=== PATIENT | female | born 1995 | race Caucasian/White ===

== ENCOUNTER → 2020-11-26 | Outpatient (CLI) | payer OTHER, BC ==
[2020-11-27 13:26] LABS: C DIFFICILE DNA NEGATIVE (Negative)
== END | disposition home or self-care (01) ==
LOC: LAB SHORT 07:30 → LAB 16:30 → LAB SHORT 16:30 → PLD 16:30
PROVIDERS: Family Medicine
DX: Z11.59 Encounter for screening for other viral diseases (principal); R19.7 Diarrhea, unspecified
CPT/HCPCS: 87015; 87045; 87046; 87177; 87205; 87209; 87329; 87493; 87899

== ENCOUNTER 2021-05-30 09:12 | Emergency (ER) | payer OTHER, BC ==
[~2021-05-30] VITALS: Ht 165.1 cm; Wt 106.6 kg
[2021-05-30 11:03] LABS: BASOPHILS ABSOLUTE AUTO 0.07 K/mm3 (0.00-0.23); BASOPHILS PERCENT AUTO 1 % (0-2); EOSINOPHILS ABSOLUTE AUTO 0.25 K/mm3 (0.00-0.68); EOSINOPHILS PERCENT AUTO 2 % (0-6); Hematocrit 45.1 % (33.0-51.0); Hemoglobin 14.9 g/dL (11.5-16.0); IMMATURE GRAN ABSOLUTE AUTO 0.05 K/mm3 (0.00-0.10); IMMATURE GRAN PERCENT AUTO 1 % (0-1); LYMPHOCYTES ABSOLUTE AUTO 3.19 K/mm3 (0.84-5.20); LYMPHOCYTES PERCENT AUTO 29 % (21-46); MONOCYTES ABSOLUTE AUTO 0.56 K/mm3 (0.16-1.47); MONOCYTES PERCENT AUTO 5 % (4-13); Mean Corpuscular HGB 28.2 pg (26.0-34.0); Mean Corpuscular Volume 85 fL (80-100); Mean Platelet Volume 10.6 fL (9.1-12.4); NEUTROPHILS ABSOLUTE AUTO 6.85 K/mm3 (1.96-9.15); NEUTROPHILS PERCENT AUTO 62 % (41-73); Platelet Count 237 K/mm3 (150-400); RDW Coefficient Variation 12.2 % (11.7-14.2); RDW Standard Deviation 37.8 fL (35.1-46.3); Red Blood Cell Count 5.28 M/mm3 (3.80-5.20); White Blood Cell Count 10.97 K/mm3 (4.00-11.30)
[2021-05-30 11:39] LABS: Source, Urine Clean Catch
[2021-05-30 12:00] LABS: Appearance, Urine Hazy (Clear); Bilirubin, Urine Neg (Neg); Blood, Urine 5+ (Neg); Color, Urine Red (P-Yellow); Glucose Qualitative, Urine Neg (Neg); Ketones, Urine Neg (Neg); Leukocyte Esterase, Urine 1+ (Neg); Nitrite, Urine Neg (Neg); Protein, Urine 3+ (Neg); Specific Gravity, Urine 1.015 (1.003-1.022); Urobilinogen, Urine NORM (Normal)
[2021-05-30 12:08] LABS: Bacteria Few /hpf; Red Blood Cells, Urine TNTC /hpf (0-2); Squamous Epithelial Cells Few /hpf (Few)
== END 2021-05-30 13:01 | disposition home or self-care (01) ==
LOC: ER 09:12
PROVIDERS: Physician Assistant
DX: O03.9 Complete or unspecified spontaneous abortion without complication (principal); Z88.0 Allergy status to penicillin
CPT/HCPCS: 36415; 76801; 76817; 81001; 84702; 85025; 86900; 86901; 87086; 99284-25

== ENCOUNTER → 2023-05-05 | Outpatient (CLI) | payer SELFPAY ==
[2023-05-05 14:14] LABS: Source, Urine Clean Catch
[2023-05-05 16:20] LABS: Amorphous Light (0-Heavy); Bacteria Many /hpf; Mucus Mod (0-Heavy); Red Blood Cells, Urine 0-2 /hpf (0-2); Squamous Epithelial Cells Few /hpf (Few); White Blood Cells, Urine 0-2 /hpf (0-5)
== END ==
LOC: LAB SHORT 14:10 → LAB 14:10
PROVIDERS: Advanced Practice Midwife
DX: O09.91 Supervision of high risk pregnancy, unspecified, first trimester (principal); Z3A.00 Weeks of gestation of pregnancy not specified
CPT/HCPCS: 81015; 87086

== ENCOUNTER → 2023-05-11 | Outpatient (CLI) | payer BC ==
[2023-05-11 10:03] LABS: BASOPHILS ABSOLUTE AUTO 0.04 K/mm3 (0.00-0.23); BASOPHILS PERCENT AUTO 0 % (0-2); EOSINOPHILS ABSOLUTE AUTO 0.25 K/mm3 (0.00-0.68); EOSINOPHILS PERCENT AUTO 2 % (0-6); Hematocrit 42.6 % (33.0-51.0); Hemoglobin 14.2 g/dL (11.5-16.0); IMMATURE GRAN ABSOLUTE AUTO 0.07 K/mm3 (0.00-0.10); IMMATURE GRAN PERCENT AUTO 1 % (0-1); LYMPHOCYTES ABSOLUTE AUTO 2.76 K/mm3 (0.84-5.20); LYMPHOCYTES PERCENT AUTO 26 % (21-46); MONOCYTES ABSOLUTE AUTO 0.47 K/mm3 (0.16-1.47); MONOCYTES PERCENT AUTO 4 % (4-13); Mean Corpuscular HGB 28.2 pg (26.0-34.0); Mean Corpuscular HGB Conc 33.3 g/dL (31.5-36.5); Mean Corpuscular Volume 85 fL (80-100); Mean Platelet Volume 10.7 fL (9.1-12.4); NEUTROPHILS ABSOLUTE AUTO 7.12 K/mm3 (1.96-9.15); NEUTROPHILS PERCENT AUTO 66 % (41-73); Platelet Count 208 K/mm3 (150-400); RDW Coefficient Variation 12.4 % (11.7-14.2); RDW Standard Deviation 37.8 fL (35.1-46.3); Red Blood Cell Count 5.04 M/mm3 (3.80-5.20); White Blood Cell Count 10.71 K/mm3 (4.00-11.30)
[2023-05-11 10:43] LABS: Albumin, Blood 3.5 g/dL (3.4-5.0); Albumin/Globulin Ratio 0.9 (0.8-1.8); Bilirubin, Total 0.3 mg/dL (0.1-1.0); Bun/Creatinine Ratio 17.8 (12.0-20.0); Calcium, Blood 8.6 mg/dL (8.5-10.1); Creatinine, Blood 0.56 mg/dL (0.40-1.00); Globulin, Blood 4.1 g/dL (2.2-4.0); Potassium, Blood 3.8 mmol/L (3.5-5.5); Thyroid Stimulating Hormone 1.22 uIU/mL (0.360-4.800); Total Protein, Blood 7.6 g/dL (6.4-8.2)
[2023-05-12 07:11] LABS: HIV AB/P24 AG SCREEN Non Reactive (Non Reactive)
[2023-05-12 08:11] LABS: HBSAG SCREEN Negative (Negative); HCV ANTIBODY Non Reactive (Non Reactive)
== END ==
LOC: LAB 07:53 → LAB SHORT 07:53
PROVIDERS: Advanced Practice Midwife
DX: O09.891 Supervision of other high risk pregnancies, first trimester (principal)
CPT/HCPCS: 36415; 80053; 84443; 85025; 86592; 86762; 86803; 86850; 86900; 86901; 87340; 87389

== ENCOUNTER → 2023-11-10 | Outpatient (CLI) | payer OTHER | END | disposition home or self-care (01) | LOC: LAB 18:08 → LAB SHORT 18:08 | DX: O09.891 Supervision of other high risk pregnancies, first trimester (principal) | CPT/HCPCS: 87081; 87150; 87184 ==

== ENCOUNTER 2023-12-12 19:05 | Inpatient (IN) | payer OTHER ==
[~2023-12-12] VITALS: Ht 167.6 cm; Wt 120.0 kg
[~2023-12-12 19:05] MED LIST: Misoprostol 200 MCG Tab PO ONE
[2023-12-12] MEDS ORDERED: Bupivacaine HCl 2.5 MG/ML 10ML P/F Injection XX SCH (19:20)
[2023-12-12] MEDS ORDERED: Lidocaine HCl 1% 30 ML SDV XX SCH (19:20)
[2023-12-12] MEDS ORDERED: Methylergonovine Maleate 0.2MG / ML 1ML Amp IM SCH (19:20)
[2023-12-12] MEDS ORDERED: Lactated Ringer's 1,000 ML IV PRN (19:20)
[2023-12-12] MEDS ORDERED: Oxytocin 10 Unit / ML Vial IM SCH (19:20)
[2023-12-12] MEDS ORDERED: FentaNYL 2mcg/ml-Bup 0.1% Epd 250 ML EPI PRN (19:20)
[2023-12-12] MEDS ORDERED: Misoprostol 200 MCG Tab PR SCH (19:20)
[2023-12-12] MEDS ORDERED: ePHEDrine Sulfate 50 MG/ML 1ML Injection XX PRN (19:20)
[2023-12-12] MEDS ORDERED: Lactated Ringer's 1,000 ML IV SCH ×2 (19:20)
[2023-12-12] MEDS ORDERED: Castor Oil 59.146 ML BTL TOP SCH (19:20)
[2023-12-12] MEDS ORDERED: Misoprostol 25 MCG Tab VAG PRN (19:20)
[2023-12-12] MEDS ORDERED: LR Oxytocin 20 Units 1,000 ML IV SCH ×3 (19:20)
[2023-12-12] MEDS ORDERED: Bupivacaine 0.5% HCl 5 MG/ML 30MLVIAL XX SCH (19:20)
[2023-12-12] MEDS ORDERED: Clindamycin 900mg in D5W 50ML 50 ML IV SCH (19:30)
[2023-12-12 19:58] LABS: BASOPHILS ABSOLUTE AUTO 0.03 K/mm3 (0.00-0.23); BASOPHILS PERCENT AUTO 0 % (0-2); EOSINOPHILS ABSOLUTE AUTO 0.18 K/mm3 (0.00-0.68); EOSINOPHILS PERCENT AUTO 2 % (0-6); Hemoglobin 12.9 g/dL (11.5-16.0); IMMATURE GRAN ABSOLUTE AUTO 0.11 K/mm3 (0.00-0.10); IMMATURE GRAN PERCENT AUTO 1 % (0-1); LYMPHOCYTES ABSOLUTE AUTO 3.15 K/mm3 (0.84-5.20); LYMPHOCYTES PERCENT AUTO 29 % (21-46); MONOCYTES PERCENT AUTO 7 % (4-13); Mean Corpuscular HGB 27.8 pg (26.0-34.0); Mean Corpuscular HGB Conc 33.9 g/dL (31.5-36.5); Mean Corpuscular Volume 82 fL (80-100); Mean Platelet Volume 11.5 fL (9.1-12.4); NEUTROPHILS ABSOLUTE AUTO 6.61 K/mm3 (1.96-9.15); NEUTROPHILS PERCENT AUTO 61 % (41-73); Platelet Count 181 K/mm3 (150-400); RDW Coefficient Variation 13.3 % (11.7-14.2); RDW Standard Deviation 38.8 fL (35.1-46.3); Red Blood Cell Count 4.64 M/mm3 (3.80-5.20); White Blood Cell Count 10.78 K/mm3 (4.00-11.30)
[2023-12-12 20:06] VITALS: BP 129/70
[2023-12-12] MEDS ORDERED: PRENATAL TABLE1 EAC2 PO (20:58)
[2023-12-12] MEDS ORDERED: ASPIR 8181 M1 PO (20:58)
[2023-12-12 21:58] VITALS: BP 143/78
[2023-12-12 22:13] VITALS: BP 127/80
[2023-12-12 22:28] VITALS: BP 137/72
[2023-12-12 22:44] VITALS: BP 136/77
[2023-12-12 22:58] VITALS: BP 149/79
[2023-12-13] VITALS (36 sets, daily range): BP systolic 122–186; BP diastolic 51–93
[2023-12-13] MEDS ORDERED: FentaNYL Citrate 50 MCG/ML 2 ML Injection ONE (09:19)
[2023-12-13] MEDS ORDERED: Carboprost Tromethamine 250 MCG/ML 1ML Amp ONE (14:25)
[2023-12-13] MEDS ORDERED: FLU VACC QS2023-24(6MOS UP)/PF 60 MCG/0.5 ML SYRINGE IM SCH (15:20)
[2023-12-13] MEDS ORDERED: Acetaminophen 325 MG TABLET PO PRN (15:20)
[2023-12-13] MEDS ORDERED: Misoprostol 200 MCG Tab PR PRN (15:20)
[2023-12-13] MEDS ORDERED: Docusate Sodium 100 MG Cap PO PRN (15:20)
[2023-12-13] MEDS ORDERED: Carboprost Tromethamine 250 MCG/ML 1ML Amp IM PRN (15:20)
[2023-12-13] MEDS ORDERED: Benzocaine Topical Anesthetic Spray 60GM TOP PRN (15:20)
[2023-12-13] MEDS ORDERED: LR Oxytocin 20 Units 1,000 ML IV SCH (15:25)
[2023-12-13] MEDS ORDERED: Lactated Ringer's 1,000 ML IV SCH (15:25)
[2023-12-13] MEDS ORDERED: Witch Hazel/Glycerin PADS TOP PRN (15:25)
[2023-12-13] MEDS ORDERED: Ibuprofen 400 MG Tab PO PRN (15:25)
[2023-12-13] MEDS ORDERED: Ketorolac Tromethamine 30mg Vial IV ONE (16:00)
[2023-12-13] MEDS ORDERED: Ketorolac Tromethamine 30mg Vial IV PRN (16:00)
[2023-12-14 05:02] VITALS: BP 134/94
[2023-12-14 05:04] VITALS: BP 133/66
[2023-12-14 08:14] VITALS: BP 136/73
[2023-12-14] MEDS ORDERED: Prenatal Vit/FE Fumarate/FA 1 Tab PO SCH (09:00)
[2023-12-14 11:15] VITALS: BP 137/65
[2023-12-14 14:51] VITALS: BP 136/72
== END 2023-12-14 16:10 | disposition home or self-care (01) | DRG 807 ==
LOC: OBS 19:05 → BC 19:15
PROVIDERS: ADMIT Obstetrics & Gynecology
PROC: 10E0XZZ Delivery of Products of Conception, External Approach (ICD-10-PCS; principal; 2023-12-13)
PROC: 10907ZC Drainage of Amniotic Fluid, Therapeutic from Products of Conception, Via Natural or Artificial Opening (ICD-10-PCS; 2023-12-13)
PROC: 0UQKXZZ Repair Hymen, External Approach (ICD-10-PCS; 2023-12-13)
PROC: 0HQ9XZZ Repair Perineum Skin, External Approach (ICD-10-PCS; 2023-12-13)
PROC: 0UQMXZZ Repair Vulva, External Approach (ICD-10-PCS; 2023-12-13)
PROC: 3E0R3BZ Introduction of Anesthetic Agent into Spinal Canal, Percutaneous Approach (ICD-10-PCS; 2023-12-13)
PROC: 00HU33Z Insertion of Infusion Device into Spinal Canal, Percutaneous Approach (ICD-10-PCS; 2023-12-13)
DX: O10.92 Unspecified pre-existing hypertension complicating childbirth (principal); Z37.0 Single live birth; O99.214 Obesity complicating childbirth; O99.824 Streptococcus B carrier state complicating childbirth; O48.0 Post-term pregnancy; Z90.89 Acquired absence of other organs; Z98.890 Other specified postprocedural states; Z88.0 Allergy status to penicillin; Z79.82 Long term (current) use of aspirin; Z79.899 Other long term (current) drug therapy; Z88.1 Allergy status to other antibiotic agents; Z88.8 Allergy status to other drugs, medicaments and biological substances; Z3A.40 40 weeks gestation of pregnancy; O70.0 First degree perineal laceration during delivery
CPT/HCPCS: 36415; 51702; 85025; 86850; 86900; 86901; 86923; A9270; J1720; J1885; J2590; J3010; J7120

== ENCOUNTER → 2025-03-14 | Outpatient (CLI) | payer OTHER ==
[~2025-03-14] MED LIST changes: +ASPIR 8181 M1 PO; -Misoprostol 200 MCG Tab PO ONE; +PRENATAL TABLE1 EAC2 PO
[2025-03-24 10:13] LABS: HPV HIGH RISK BY TMA Not Detected; HPV SOURCE Cervical
== END ==
LOC: LAB SHORT 16:24 → LAB 16:24
PROVIDERS: Obstetrics & Gynecology
DX: Z01.419 Encounter for gynecological examination (general) (routine) without abnormal findings (principal)
CPT/HCPCS: 87624; G0123